=== PATIENT | female | born 1995 | race Caucasian/White ===

== ENCOUNTER 2022-05-04 17:29 | Emergency (ER) | payer MEDICAID ==
[~2022-05-04] VITALS: Ht 167.6 cm; Wt 78.0 kg
[2022-05-04 17:38] VITALS: BP 110/63
[2022-05-04] MEDS ORDERED: IBUP-2028 MT (22:23)
[2022-05-04] MEDS ORDERED: KETOROLAC 60MG/2ML VIAL IM ONE (22:30)
== END 2022-05-04 22:50 | disposition home or self-care (01) ==
LOC: ER 17:29
DX: M25.511 Pain in right shoulder (principal); M79.641 Pain in right hand; M79.644 Pain in right finger(s); R20.2 Paresthesia of skin
CPT/HCPCS: 73030; 81025; 96372; 99283; J1885

== ENCOUNTER 2022-06-09 14:52 | Emergency (ER) | payer MEDICAID ==
[~2022-06-09] VITALS: Ht 167.6 cm; Wt 75.0 kg
[~2022-06-09 14:52] MED LIST: IBUP-2028 MT
[2022-06-09] MEDS ORDERED: KETOROLAC 60MG/2ML VIAL IM ONE (18:30)
[2022-06-09 18:31] VITALS: BP 121/61
[2022-06-09 19:24] LABS: HCG SCREEN NEGATIVE
[2022-06-09] MEDS ORDERED: IBUP-2028 MT (19:26)
== END 2022-06-09 19:48 | disposition home or self-care (01) ==
LOC: ER 14:52
DX: S43.402A Unspecified sprain of left shoulder joint, initial encounter (principal); X58.XXXA Exposure to other specified factors, initial encounter; Y93.89 Activity, other specified; Y92.89 Other specified places as the place of occurrence of the external cause; Y99.8 Other external cause status
CPT/HCPCS: 73060; 81025; 84703; 96372; 99284; J1885; Z7610

== ENCOUNTER 2022-09-28 22:56 | Emergency (ER) | payer MEDICAID ==
[~2022-09-28] VITALS: Ht 152.4 cm; Wt 58.1 kg
[2022-09-28 23:23] VITALS: O2SAT 98
[2022-09-28 23:53] LABS: BASOPHILS % 0.4 % (0.0-2.0); EOSINOPHILS % 0.5 % (0.0-5.0); HEMATOCRIT. 35.8 % (36.0-48.0); HEMOGLOBIN. 12.1 g/dL (12.0-16.0); LYMPHOCYTES % 21.1 % (20.0-50.0); MEAN CORPUSCULAR VOLUME 85.9 fL (81.0-99.0); MEAN PLATELET VOLUME 9.2 fl (7.4-10.4); MONOCYTES % 5.1 % (2.0-8.0); NEUTROPHILS % 72.9 % (40.0-76.0); PLATELET 320 x1000/uL (130-400); RED BLOOD CELL COUNT 4.17 mill/uL (4.2-5.4); RED CELL DISTRIBUTION WIDTH 14.1 % (11.6-14.6)
[2022-09-28 23:57] LABS: CHLORIDE 106 mEq/L (98-107)
[2022-09-29 00:21] LABS: B-HCG QUANTITATIVE 37657 mIU/mL (<3)
[2022-09-29] MEDS ORDERED: SODIUM CHLORIDE 0.9% 1,000 ML IV NR (00:45)
[2022-09-29] MEDS ORDERED: ONDANSETRON HCL 4MG/2ML INJ IV NR (00:45)
[2022-09-29 06:00] LABS: CLARITY URINE CLOUDY (CLEAR); COLOR URINE YELLOW (YELLOW); KETONES URINE NEGATIVE (NEGATIVE); LEUKOCYTE ESTERASE URINE 1+ (NEGATIVE); NITRITE URINE POSITIVE (NEGATIVE); OCCULT BLOOD URINE 3+ (NEGATIVE); PH URINE 5.5 (4.5-8.0); PROTEIN URINE TRACE (NEGATIVE); SPECIFIC GRAVITY URINE 1.019 (1.005-1.030); UROBILINOGEN URINE 0.2 E.U./dL (0.2-1.0)
[2022-09-29] MEDS ORDERED: CEPH500C2 MT (06:03)
[2022-09-29 06:30] VITALS: BP 95/60; PULSE 77; RESP 12; TEMP 98.7
== END 2022-09-29 06:32 | disposition home or self-care (01) ==
LOC: ER 23:37
DX: O23.31 Infections of other parts of urinary tract in pregnancy, first trimester (principal); Z3A.01 Less than 8 weeks gestation of pregnancy
CPT/HCPCS: 36415; 76801; 76817; 80053; 81003; 84702; 85025; 86850; 86900; 86901; 96361; 96374; 99285; J2405; Z7610